=== PATIENT | female | born 1965 | race Caucasian/White ===

== ENCOUNTER 2019-03-09 00:38 | Emergency (ER) | payer MEDICAID ==
[~2019-03-09] VITALS: Ht 149.9 cm; Wt 62.6 kg
[2019-03-09 00:44] VITALS: Ht 149.9 cm; Wt 62.6 kg
[2019-03-09 02:52] VITALS: BP 168/77
== END 2019-03-09 02:52 | disposition home or self-care (01) ==
LOC: ED 00:38
DX: I16.0 Hypertensive urgency (principal); I10 Essential (primary) hypertension; E11.9 Type 2 diabetes mellitus without complications; E78.00 Pure hypercholesterolemia, unspecified
CPT/HCPCS: 82962